=== PATIENT | male | born 2000 | race Asian ===

== ENCOUNTER 2022-06-23 18:47 | Emergency (ER) | payer BC, SELFPAY ==
[2022-06-23 18:48] VITALS: BP 137/96; PULSE 104; RESP 18; TEMP 36.6; O2SAT 100; BMI 29.7
--- NOTE | 2022-06-23 19:59 | EDS_ITS ---
HPI History of Present Illness Chief Complaint: Abscess Informant: patient Narrative Narrative: Patient states he is concerned he has an abscess on his lower back area. He noted this about 5 days ago. He does not think there is any drainage. It sore in 1 local area. Its not swelling more. He has no systemic symptoms such as fevers chills nausea vomiting. No change with bowel habits. No urinary symptoms. No history of diabetes. Patient states he did have a drainage of an abscess here many years ago. He thinks it may have been a pilonidal cyst. He is concerned that is what he may have. He did not have a formal surgical procedure for this. PFSH PFS Medical History no medical history Home Medications cephalexin 500 mg capsule 500 mg PO Q6 #40 CAPSULES 06/23/22 [Rx Last Taken Unknown] Allergy/AdvReac Type Severity Reaction Status Date / Time No Known Allergies Allergy Verified 06/23/22 18:50 Family History no significant family his Surgical History no surgical history Social History Smoking Status: Never smoker ROS ROS ED Constitutional Constitutional ED: Denies chills, fever(s) or subjective Cardiovascular Cardiovascular: Denies chest pain or palpitations Respiratory/Chest Respiratory/Chest: Denies cough or dyspnea Gastrointestinal Gastrointestinal: Denies abdominal pain, constipation, diarrhea, melena, nausea or vomiting Genitourinary Genitourinary ED: Denies dysuria, hematuria or urinary frequency Musculoskeletal Musculoskeletal: Denies myalgias Integumentary Reports rash Neurologic Neurologic: Denies paresthesias or weakness Endocrine Endocrinology: Denies polydipsia or polyuria Hematologic/Lymphatic Hematologic/Lymphatic: Denies easy bleeding or easy bruising Allergic/Immunologic Allergic/Immunologic ED: Denies urticaria EXAM Physical Exam Narrative Exam Narrative: Patient awake alert no acute distress sitting comfortably in bed. HEENT shows moist mucous membranes. Neck is supple Heart is regular with a rate about 90. No murmur. Lungs are clear bilaterally. Saturations are normal. Abdomen is soft completely nontender No spinal tenderness Skin: There is an area of erythema about 1-1/2 cm around on the upper gluteal fold in the middle. This area does have some crusting just off to the patient's left side. There is no fluctuance swelling abscess. There is minimal erythema around it. It almost looks like he had a very small abscess that may have drained. There is nothing lower in the gluteal fold. This does not look to be pilonidal cyst. There is no tenderness anywhere near the rectum. There is nothing to drain. Const Vital Signs: 06/23/22 18:48 Temperature 98 F Temperature Source Temporal Pulse Rate 104 H Respiratory Rate 18 Blood Pressure 137/96 H Blood Pressure Mean 109 Pulse Ox 100 Oxygen Delivery Method Room Air MDM MDM MDM Narrative Medical decision making narrative: There is no area that can be drained. This looks like he may have had a small abscess that spontaneously drained. With his slight erythema in the history of prior pilonidal cyst I will place him on antibiotics. We discussed reasons to return primarily swelling pain fevers chills or any pain with a bowel movement. Discharge Plan Triage Chief Complaint: Abscess ED Provider: Jaziel Loco Dx/Rx/DC Orders Clinical Impression: Cutaneous abscess Instructions: ED Abscess Antibiotic Treatment Only Prescriptions: New cephalexin [cephalexin] 500 mg capsule 500 mg PO Q6 Qty: 40 0RF Referrals: Carmen Johnson DO [Med Staff - [facility]] - 3-5 Days if not improving Disposition Disposition: Home, Self Care
== END 2022-06-23 20:19 | disposition home or self-care (01) ==
LOC: ED 20:17
PROVIDERS: Emergency Provider Emergency Medicine; Visit Provider Emergency Medicine
DX: L02.212 Cutaneous abscess of back [any part, except buttock and flank] (principal)
CPT/HCPCS: 99282

== ENCOUNTER 2024-01-27 18:46 | Emergency (ER) | payer BC, SELFPAY ==
[2024-01-27 18:47] VITALS: BP 144/104; PULSE 115; RESP 18; TEMP 37.1; O2SAT 97; BMI 31.3
--- NOTE | 2024-01-27 18:58 | EX.ED.DYSGE1 ---
HPI History of Present Illness Chief Complaint: Abd Pain PFSH PFSH Home Medications ?Medication ?Instructions ?Recorded ?Last Taken ?Type ondansetron 4 mg disintegrating 4 mg PO Q8H PRN PRN Nausea #10 tabs 01/27/24 Unknown Rx tablet Allergy/AdvReac Type Severity Reaction Status Date / Time No Known Allergies Allergy Verified 06/23/22 18:50 Social History Smoking Status: Never smoker EXAM Physical Exam Const Vital Signs: 01/27/24 18:47 01/27/24 20:46 01/27/24 21:51 Temperature 98.7 F 98.3 F Temperature Source Oral Pulse Rate 115 H 81 80 Respiratory Rate 18 16 18 Blood Pressure 144/104 H 128/86 H 126/68 H Blood Pressure Mean 117 100 87 Pulse Ox 97 99 99 Oxygen Delivery Method Room Air Room Air MDM MDM MDM Narrative Medical decision making narrative: HISTORY OF PRESENT ILLNESS: 23-year-old male presents with 3 weeks of left lower quad abdominal pain. He notes he gets worsening pain nausea and diarrhea when he is eating. He has had decreased appetite secondary to diarrhea. REVIEW OF SYSTEMS: Pertinent positives: Abdominal pain, diarrhea and nausea Pertinent negatives: Fever, chest pain PHYSICAL EXAM: Nursing triage notes reviewed, Vital signs reviewed Constitutional: please see mdm HENT: MMM Eyes: Pupils equal round and reactive to light, Extraocular muscles intact Neck: No stridor, no JVD, full neck ROM Lungs: Clear to auscultation, No wheezing or rales. No increased work of breathing, no conversational dyspnea, no accessory muscle use, no nasal flaring. No respiratory distress noted Heart: Regular rate and rhythm, No murmurs, No rubs and No gallops, 2+ distal pulses (radial, femoral, posterior tibial) in all extremities Abdomen: Soft, there is no tenderness, rigidity, rebound or guarding, no obvious peritoneal signs, no palpable pulsatile abdominal masses, no auscultated abdominal bruit : No CVAT Extremities: No edema Neuro: No focal neurological deficits, cranial nerves II through XII intact, 5/5 strength in all extremities. Intact sensation to light touch in all extremities, 2+ reflexes bilateral patella tendons. Normal gait. No ataxia. Skin: No rash or lesions noted MEDICAL DECISION MAKING: Chief Complaint: Abdominal pain, diarrhea and nausea External records reviewed: Reviewed prior allergies, problem list, vital signs, prior medications, prior imaging studies Factors affecting care: none Social determinants of health: none History obtained from others: none Consults: none MDM Narrative: Patient was initially tachycardic at a rate of 115 otherwise afebrile and nontoxic-appearing. Abdominal exam I considered the following differential diagnosis: AAA, small bowel obstruction, abdominal perforation, appendicitis, pancreatitis, hepatobiliary pathology (acute cholecystitis), mesenteric ischemia, pathology (ie nephrolithiasis, pyelonephritis). I obtained a broad lab work to further elucidate the etiology of patient complaints ALL IMAGES (IF OBTAINED) HAVE BEEN PERSONALLY REVIEWED AND INTERPRETED BY MYSELF. CT scan abdomen pelvis showed no evidence of obvious acute surgical pathology in the abdomen CBC without leukocytosis, severe anemia, no thrombocytopenia. BMP without evidence of significant electrolyte abnormalities, no anion gap, no acute kidney injury. LFTs show no evidence of hepatobiliary pathology. Lipase is wnl indicating no pancreatic inflammation. Urinalysis shows no evidence of urinary inflammation suggestive of UTI On re-evaluation patient's heart rate improved after Toradol and Zofran. The synthesis of the patient's history physical exam labs images suggest likely gastroenteritis likely viral origin given no fever, hematochezia. I did order for the patient a stool culture. He was unable to provide a sample in the ED encouraged copious p.o. intake. Gave Zofran for home nausea control. Encouraged to follow with his PCP/gastroenterology for further outpatient evaluation and treatment. The patient and/or family, caregivers express understanding. The patient and/or family, caregivers agrees with the plan. Shared decision making: I will have a discussion with the patient and or visitors regarding risk/benefits of further testing or admission. They will be made aware of of the risk/benefits inherent in this decision they will be given the opportunity to voice understanding. Total critical care time today provided was at least 0 minutes. This excludes separately billable procedures. Critical care time (if documented) is secondary to the patient having high probability of clinically significant/life threatening deterioration in the patient's condition which required my urgent intervention. Impression: 1. Diarrhea 2. Viral gastroenteritis 3. Dehydration Dispo: Discharge home This note was generated with [employer] dictation software. It may contain incorrect words, spelling, and punctuation that were not noted in review of the chart prior to signing. Lab Data Labs: Laboratory Results - last 24 hr 01/27/24 19:20 WBC 10.4 RBC 6.41 H Hgb 16.8 H Hct 52.8 MCV 82.4 MCH 26.2 L MCHC 31.8 L RDW Std Deviation 38.0 RDW Coeff of Jorge 12.8 Plt Count 412 MPV 9.3 Immature Gran % (Auto) 0.700 Neut % (Auto) 68.0 Lymph % (Auto) 20.9 [place] % (Auto) 8.7 Eos % (Auto) 1.0 Baso % (Auto) 0.7 Absolute Neuts (auto) 7.1 Absolute Lymphs (auto) 2.18 Nucleated RBC % 0 Differential Comment SCANNED Reactive Lymphocytes 1+ Sodium 140 Potassium 3.5 Chloride 109 H Carbon Dioxide 25.0 Anion Gap 6 BUN 6 L Creatinine 0.84 Estim Creat Clear Calc 145.67 Est GFR (MDRD) Af Amer 144 Est GFR (MDRD) Non-Af 119 BUN/Creatinine Ratio 7.2 L Glucose 87 Calcium 9.4 Total Bilirubin 0.50 AST 31 ALT 87 H Alkaline Phosphatase 81 Total Protein 8.7 H Albumin 4.0 Globulin 4.7 H Albumin/Globulin Ratio 0.9 Lipase 22 Urine Color Yellow Urine Clarity Clear Urine pH 6.0 Ur Specific Morgan 1.010 Urine Protein Negative Urine Glucose (UA) Normal Urine Ketones Negative Urine Occult Blood 25 H Urine Nitrite Negative Urine Bilirubin Negative Urine Urobilinogen Normal Ur Leukocyte Esterase Negative Urine RBC 0-5 SEEN Urine WBC 0-5 SEEN Ur Squamous Epith Cells 0 SEEN Urine Bacteria RARE Urine Mucus 0 SEEN Radiography Diagnostic Testing: Clinical Impression(s) from Imaging Studies Abdomen/Pelvis CT 01/27/24 19:30 IMPRESSION: No mass or obstruction. Calcified appendicolith within normal-sized appendix. Electronically Signed: Albert Lees MD at 21:25 EDT , Discharge Plan Triage Chief Complaint: Abd Pain ED Provider: Gino Chiang Dx/Rx/DC Orders Instructions: ED Gastroenteritis, Viral (Adult) Prescriptions: New ondansetron 4 mg tablet,disintegrating 4 mg PO Q8H PRN PRN (Reason: Nausea) Qty: 10 0RF Primary Care Provider: Care Physician,No Primary Referrals: Friend,Olvin, DO [Med Staff - Active Staff] - Care Physician,No Primary [Primary Care Provider] - Activity Restrictions/Additional Instructions: Thank you for trusting us with your care today! Your labs images were reassuring. Your CT scan did not reveal any evidence of An acute surgical emergency in your abdomen or pelvis. Your labs showed no signs of intra-abdominal infections, urine infections Please take Tylenol (2 pills, 650 mg), ibuprofen (2 pills, 400 mg) every 6 hours as needed for pain and fever control. Please take Zofran as needed for nausea vomiting control. Please return to the emergency department if your symptoms change or worsen. Please follow with your primary care physician for further outpatient evaluation and management. Print Language: Irish Disposition Disposition: Home, Self Care Discharge Date/Time: 01/27/24 21:52
[2024-01-27] MEDS: Ondansetron 4 MG/2 ML Vial IV (19:24)
[2024-01-27] MEDS: Ketorolac 15 MG/ML Vial IV (19:24)
--- NOTE | 2024-01-27 19:30 | CT_ITS ---
STUDY: CT ABDOMEN AND PELVIS WITH CONTRAST REASON FOR EXAM: Male, 23 years old. LLQ abdominal pain RADIATION DOSAGE (If Supplied By Facility): CTDIvol = ( 15.49 ) mGy, DLP = ( 1199.25 ) mGycm TECHNIQUE: Transaxial images were obtained from the dome of the diaphragm to the symphysis pubis without oral contrast. IV 100mL Isovue-370 was administered. Sagittal and coronal images were reconstructed. Individualized dose optimization techniques were used for this CT. COMPARISON: None. FINDINGS: The visualized lung bases are unremarkable. The visualized portions of the heart are within normal limits. Normal liver. Normal gallbladder and extrahepatic biliary system. Normal spleen. Normal pancreas. Normal bilateral adrenal glands. Normal right kidney. Normal left kidney. Normal visualized stomach. Normal small intestine. Normal colon. There is a calcified appendicolith. The appendix is normal size. There is no surrounding inflammatory change. Normal abdominal aorta. Normal inferior vena cava. Normal retroperitoneum. Normal urinary bladder. There is no free fluid in the abdomen or pelvis. Normal abdominal wall. Normal osseous structures. CT/Abdomen/Pelvis W IV Cont ONLY IMPRESSION: No mass or obstruction. Calcified appendicolith within normal-sized appendix. Electronically Signed: Albert Lees MD at 21:25 EDT ,
[2024-01-27 19:32] LABS: Color, Urine Yellow (Yellow); Glucose, Dipstick Normal (Normal); Ketone-Dipstick Negative (Negative); Leukocyte Esterase-Dipstick Negative /ul (Negative); Mucous, Urine 0 SEEN /hpf (<or=2+); Nitrite-Dipstick Negative (Negative); Occult Blood-Urine 25 /ul (Negative); Protein-Dipstick Negative (Negative); Squamous Epithelial Cells - UA 0 SEEN /hpf (0-5); Urine Bilirubin Dipstick Negative (Negative); Urine Clarity Clear (Clear); Urine Urobilinogen Normal (Normal)
[2024-01-27 19:33] LABS: Absolute Lymphocyte Count 2.18 X10^3/uL (0.83-4.51); Absolute Neutrophil Count 7.1 X10^3/uL (2.0-7.7); Basophil# 0.07 X10^3/uL; Basophil% 0.7 % (0-1); Hematocrit 52.8 % (40-54); Hemoglobin 16.8 g/dL (13.0-16.5); Lymphocyte # 2.18 X10^3/ul (0.83-4.51); Lymphocyte % 20.9 % (19-41); Mean Corp Hgb Conc 31.8 g/dL (32-36); Mean Corpuscular Hgb 26.2 pg (27.0-32.0); Mean Corpuscular Volume 82.4 fL (80-94); Mean Platelet Vol. 9.3 fl (6.2-12.0); Monocyte# 0.91 X10^3/uL; Monocyte% 8.7 % (0-10); NRBC Flagged by Analyzer 0 % (0-5); Neutrophil # 7.08 X10^3/uL (2.7-7.7); POSITIVE MORPHOLOGY YES; Platelet Count 412 K/mm3 (150-450); RBC Distribution Width CV 12.8 % (11.6-14.6); Red Blood Count 6.41 M/mm3 (4.6-6.2); White Blood Count 10.4 K/mm3 (4.4-11.0)
[2024-01-27 19:38] LABS: Differential Indicated SCAN CRITERIA MET
[2024-01-27 19:44] LABS: Red Blood Cells-Urine 0-5 SEEN /hpf (0-5); White Blood Cells 0-5 SEEN /hpf (0-5)
[2024-01-27 19:45] LABS: Bacteria RARE /hpf (None Seen)
[2024-01-27 19:52] LABS: ALB/GLOB Ratio 0.9 RATIO (0.9-2.4); AST(SGOT) 31 U/L (15-37); Alanine Aminotransfer ALT/SGPT 87 U/L (16-61); Alkaline Phosphatase 81 U/L (45-117); Anion Gap 6 (5-15); BUN 6 mg/dL (7-18); BUN/Creat Ratio 7.2 RATIO (10-20); Calcium,Total 9.4 mg/dL (8.5-10.1); Chloride 109 mmol/L (98-107); Creatinine, Serum 0.84 mg/dL (0.70-1.30); EST Glomerular Filtration Rate 119 mL/min (>60); Est Glom Filt Rate - Afr Amer 144 mL/min (>60); Estimated Creatinine Clearance 145.67 ml/min; Globulin 4.7 g/dL (2.2-4.2); Glucose 87 mg/dL (74-106); Lipase 22 U/L (13-75); Potassium 3.5 mmol/L (3.5-5.1); Protein, Total 8.7 g/dL (6.4-8.2); Sodium Level 140 mmol/L (136-145)
[2024-01-27 20:14] LABS: Differential Comment SCANNED; Reactive Lymphocyte 1+
[2024-01-27 20:46] VITALS: BP 128/86; PULSE 81; RESP 16; O2SAT 99
[2024-01-27 21:51] VITALS: BP 126/68; PULSE 80; RESP 18; TEMP 36.8; O2SAT 99
== END 2024-01-27 21:52 | disposition home or self-care (01) ==
PROVIDERS: Emergency Provider Emergency Medicine; Visit Provider Emergency Medicine
DX: A08.4 Viral intestinal infection, unspecified (principal); E86.0 Dehydration
CPT/HCPCS: 74177; 80053; 81001; 83690; 85025; 96374; 96375; 96376; 99282; Q9967; A4216; J2405